=== PATIENT | female | born 1970 | race African-American/Black ===

== ENCOUNTER → 2019-03-25 | Outpatient (CLI) | payer MEDICAID | END | disposition home or self-care (01) | LOC: US 09:34 | PROVIDERS: ATTEND Family Medicine | DX: N63.22 Unspecified lump in the left breast, upper inner quadrant (principal); N60.02 Solitary cyst of left breast | CPT/HCPCS: 76642 ==

== ENCOUNTER → 2022-11-09 | Outpatient (CLI) | payer MEDICAID | END | disposition home or self-care (01) | LOC: US 08:44 | PROVIDERS: ATTEND Family Medicine | DX: Z12.31 Encounter for screening mammogram for malignant neoplasm of breast (principal); N60.02 Solitary cyst of left breast; N60.01 Solitary cyst of right breast | CPT/HCPCS: 76642 ==